=== PATIENT | female | born 1955 | race Caucasian/White ===

== ENCOUNTER 2017-10-30 09:31 | Emergency (ER) | payer OTHER ==
[~2017-10-30] VITALS: Ht 157.5 cm; Wt 60.0 kg
[~2017-10-30 09:31] MED LIST: ADVAIR DISK2 IN; ALBUTEROL S2.5 MG/.5 IN; ALENDRONATE70 MG PO; ASPIRIN EC325 MG PO; ATORVASTATIN CA10 MG PO; AUGMENTIN875TAB PO; BACTRIM DS1 TAB PO; BACTROBAN2 % EX; CYANOCOBALAM1000 MC1 IM; DIPHEN/ATROP2.5 M1 PO; DOXYCYCL HYC100 M4 PO; DUREZOL0.05 % OP; GABAPENTIN100 MG PO; HYDROCHLOROT12.5 M1 PO; LORTAB 1010 MG PO; LORTAB 5 OR; LORTAB5 OR; LOTRIMIN AF FOR H1 % TOP; MEDDOSEPAK PO; NAPROSYN250 MG PO; NEURONTIN300 MG PO; NO HOME MEDS PER PT; PAROXETINE20 MG PO; PERCOCET 5/325M1 TAB PO; PRILOSEC20 MG PO; PRIMATENE0.22 MG/A IN; PROMETHAZINE HC25 MG PO; PROVENTIL INH17 GM IN; PROVENTIL0.083 % IN; QVAR REDIH80 MCG/ACT IN; SPIRIVA IN; STERAPRED DS10 MG PO; TORADOL30 MG/VIAL IJ; ULTRAM50 MG OR; ZPAK PO; [UNRECOGNIZED DRUG - OTHER] OS
[2017-10-30] MEDS ORDERED: PROAIR HFA108 MCG/AC IN (11:18)
[2017-10-30] MEDS ORDERED: K-DUR/KLOR-CON20 MEQ PO (11:20)
[2017-10-30] MEDS ORDERED: LORTAB 1010 MG PO (17:12)
[2017-10-30 18:00] VITALS: BP 129/77
== END 2017-10-30 18:00 | disposition home or self-care (01) | DRG 563 ==
LOC: ED 09:31
PROC: 2W3QX1Z Immobilization of Right Lower Leg using Splint (ICD-10-PCS; principal; 2017-10-30)
DX: S82.141A Displaced bicondylar fracture of right tibia, initial encounter for closed fracture (principal); M25.561 Pain in right knee; W17.2XXA Fall into hole, initial encounter; Y93.01 Activity, walking, marching and hiking; Y92.007 Garden or yard of unspecified non-institutional (private) residence as the place of occurrence of the external cause; M25.562 Pain in left knee

== ENCOUNTER 2018-01-02 12:22 | Emergency (ER) | payer OTHER ==
[~2018-01-02] VITALS: Ht 157.5 cm; Wt 60.9 kg
[~2018-01-02 12:22] MED LIST changes: +K-DUR/KLOR-CON20 MEQ PO; +PROAIR HFA108 MCG/AC IN
[2018-01-02 13:11] LABS: HEMATOCRIT 45.1 % (37.0-47.0); IMMATURE GRANULOCYTES 0.3 % (0.0-1.0); MEAN CORPUSCULAR HGB 30.9 pG CALC (26.0-32.0); MEAN CORPUSCULAR HGB CONC 33.3 g/L CALC (32.0-36.0); NEUT# 11.58 thou/uL (2.00-7.15); RED BLOOD COUNT 4.85 mill/uL (4.20-5.60); RED CELL DISTRI WIDTH 12.7 % (11.5-15.5)
[2018-01-02 13:20] LABS: ALKALINE PHOSPHATASE 129 u/l (38-126); ANION GAP 20 (6-22 (CALC)); BILIRUBIN, TOTAL 0.8 mg/dL (0.0-1.4); BUN 16 mg/dL (8-23); BUN/CREATININE RATIO 29 (12-20 (CALC)); CARBON DIOXIDE 21 mmol/l (22-30); CHLORIDE 107 mmol/l (95-108); CREATININE 0.6 mg/dL (0.5-1.0); GFR > 60 ML/MIN (>=60 (CALC)); GFR FOR AFR.AMER. > 60 ML/MIN (>=60 (CALC)); POTASSIUM 3.8 mmol/l (3.5-5.1); SGOT/AST 41 u/l (9-36); SGPT/ALT 45 u/l (11-66); SODIUM 144 mmol/l (137-146); TOTAL PROTEIN 7.2 g/dL (6.3-8.2)
[2018-01-02 13:24] LABS: ALBUMIN 4.5 g/dL (3.2-5.0)
[2018-01-02] MEDS ORDERED: PHENERGAN25 MG/TAB PO (14:22)
[2018-01-02] MEDS ORDERED: LOMOTIL2.5 MG PO (14:22)
[2018-01-02 15:09] VITALS: BP 114/68
== END 2018-01-02 15:41 | disposition home or self-care (01) | DRG 392 ==
LOC: ED 12:22
PROVIDERS: Family Medicine
DX: A08.39 Other viral enteritis (principal); R10.11 Right upper quadrant pain; R10.12 Left upper quadrant pain; R42 Dizziness and giddiness; R11.10 Vomiting, unspecified

== ENCOUNTER 2018-08-09 00:11 | Emergency (ER) | payer OTHER ==
[~2018-08-09] VITALS: Ht 157.5 cm; Wt 60.2 kg
[~2018-08-09 00:11] MED LIST changes: +LOMOTIL2.5 MG PO; +PHENERGAN25 MG/TAB PO
[2018-08-09 01:11] VITALS: BP 132/61
== END 2018-08-09 01:15 | disposition home or self-care (01) ==
LOC: ED 00:11
DX: J02.9 Acute pharyngitis, unspecified (principal); I10 Essential (primary) hypertension; M19.90 Unspecified osteoarthritis, unspecified site; J45.909 Unspecified asthma, uncomplicated; Z98.84 Bariatric surgery status

== ENCOUNTER 2019-04-25 12:48 | Emergency (ER) | payer OTHER ==
[~2019-04-25] VITALS: Ht 157.5 cm; Wt 59.0 kg
[2019-04-25] MEDS ORDERED: BACTRIM DS1 TAB PO (14:22)
[2019-04-25] MEDS ORDERED: KEFLEX500 M1 PO (14:22)
[2019-04-25 14:40] VITALS: BP 129/79
== END 2019-04-25 14:39 | disposition home or self-care (01) ==
LOC: ED 12:48
DX: L02.415 Cutaneous abscess of right lower limb (principal); I10 Essential (primary) hypertension

== ENCOUNTER 2019-04-27 12:27 | Emergency (ER) | payer OTHER ==
[~2019-04-27] VITALS: Ht 157.5 cm; Wt 61.4 kg
[~2019-04-27 12:27] MED LIST changes: +KEFLEX500 M1 PO
[2019-04-27 13:26] VITALS: BP 142/65
== END 2019-04-27 13:31 | disposition home or self-care (01) ==
LOC: ED 12:27
DX: Z48.01 Encounter for change or removal of surgical wound dressing (principal); I10 Essential (primary) hypertension

== ENCOUNTER 2019-06-09 17:21 | Observation (INO) | payer OTHER ==
[~2019-06-09] VITALS: Ht 157.5 cm; Wt 60.0 kg
[~2019-06-09 17:21] MED LIST changes: -PROAIR HFA108 MCG/AC IN
--- NOTE | 2019-06-09 17:22 | NUR ---
PT DIRECTLY TO ROOM 14 VIA WHEELCHAIR.
[2019-06-09 17:44] LABS: HEMATOCRIT 41.2 % (37.0-47.0); HEMOGLOBIN 13.4 g/dl (12.0-16.0); IMMATURE GRANULOCYTES 0.4 % (0.0-5.0); MEAN CELL VOLUME 95.2 fL CALC (80.0-100.0); MEAN CORPUSCULAR HGB 30.9 pG CALC (26.0-32.0); MEAN CORPUSCULAR HGB CONC 32.5 g/L CALC (32.0-36.0); NEUT# 7.41 thou/uL (2.00-7.15); RED BLOOD COUNT 4.33 mill/uL (4.20-5.60); RED CELL DISTRI WIDTH 12.2 % (11.5-15.5)
[2019-06-09] MEDS ORDERED: PAROXETINE20 MG PO (17:46)
[2019-06-09] MEDS ORDERED: FLECAINIDE50 MG PO (17:47)
[2019-06-09] MEDS ORDERED: PRAVASTATIN SOD20 MG PO (17:48)
[2019-06-09] MEDS ORDERED: XARELTO20 MG PO (17:48)
[2019-06-09] MEDS ORDERED: LISINOPRIL5 MG PO (17:48)
[2019-06-09] MEDS ORDERED: PROAIR HFA108 MCG/AC IN (17:49)
[2019-06-09] MEDS ORDERED: FLOVENT HF220 MCG/AC IN (17:50)
[2019-06-09 18:00] LABS: ALKALINE PHOSPHATASE 109 u/l (38-126); BILIRUBIN, TOTAL 0.3 mg/dL (0.0-1.4); BUN 24 mg/dL (8-23); BUN/CREATININE RATIO 28 (12-20 (CALC)); CARBON DIOXIDE 30 mmol/l (22-30); CHLORIDE 99 mmol/l (95-108); CREATININE 0.9 mg/dL (0.5-1.0); GFR > 60 ML/MIN (>=60 (CALC)); GFR FOR AFR.AMER. > 60 ML/MIN (>=60 (CALC)); SGOT/AST 49 u/l (9-36); SODIUM 139 mmol/l (137-146)
--- NOTE | 2019-06-09 18:02 | NUR ---
RESTING ON STRECTHER, STAETS NO PAIN AT THIS TIME BUT THAT IT COMES AND GOES. CALL HARRY WITHIN REACH
[2019-06-09 18:11] LABS: MYOGLOBIN 30 ng/mL (0 - 62)
[2019-06-09 18:12] LABS: ALBUMIN 4.9 g/dL (3.2-5.0); ANION GAP 15 (6-22 (CALC)); POTASSIUM 4.5 mmol/l (3.5-5.1)
[2019-06-09 19:13] LABS: URINE BILIRUBIN - DIPSTICK NEGATIVE (NEGATIVE); URINE BLOOD DIPSTICK NEGATIVE (NEGATIVE); URINE COLOR YELLOW; URINE GLUCOSE - DIPSTICK NEGATIVE (NEGATIVE); URINE KETONE NEGATIVE (NEGATIVE); URINE LEUK ESTERASE NEGATIVE (NEGATIVE); URINE NITRITE - DIPSTICK NEGATIVE (Negative); URINE PROTEIN - DIPSTICK NEGATIVE (NEG-TRACE); URINE SPECIFIC GRAVITY <=1.005; URINE UROBILINOGEN - DIPSTICK 0.2 E.U./dL (0.2)
--- NOTE | 2019-06-09 19:58 | NUR ---
ATTEMPTED TO CALL REPORT. RASHEEDA WILL CALLBACK.
--- NOTE | 2019-06-09 20:40 | NUR ---
PT RESTING. FAMILY AT BEDSIDE. AWAITING ADMIT ORDERS. VSS. PT C/O BEING HOT. ICE WATER GIVEN.
--- NOTE | 2019-06-09 20:58 | NUR ---
REPORT TO EMIR VANESSA. DR DAMON DID NOT WISH TO ORDER ASA PT IS ON XALERTO.
--- NOTE | 2019-06-09 21:09 | NUR ---
TO FLOOR WITH PORTABLE MONITOR/VIA STRETCHER/WITH NURSE. PT AMBULATORY TO SCALE AND THEN TO BED. PT TOOK O2 OFF AND IS NOW SATING AT 97/RA.
--- NOTE | 2019-06-09 21:15 | NUR ---
PT. ARRIVES VIA STRETCHER FROM ER. AMBULATORY WITH STEADY GAIT FROM STRETCHER TO STANDING SCALE AND THEN TO ICU BED #2. PT. AMBULATORY WITH STEADY GAIT WITHOUT ASSIST. RESPS EVEN AND UNLABORED. LUNGS CTA. EXPLAINED CALL LIGHT AND BED CONTROLS TO PATIENT. DENIES CHEST PAIN AT THIS TIME. BOWEL SOUNDS ACTIVE. PT. STATES WITH CHRONIC DIARRHEA AND HAD MULTIPLE EPISODES TODAY. NO EDEMA NOTED. DISTIL PULSES INTACT. VSS. CALL LIGHT REMAINS WITHIN REACH.
[2019-06-09 21:30] VITALS: BP 135/83
--- NOTE | 2019-06-09 22:22 | NUR ---
PT. PROVIDED WITH SNACK OF APPLESAUCE AND GRANOLA BAR AT THIS TIME. CALL LIGHT REMAINS WITHIN REACH. PT. DENIES OTHER COMPLAINTS OR NEEDS.
--- NOTE | 2019-06-09 22:50 | NUR ---
MEDICATED PER HER REQUEST WITH SLEEPING PILL. DENIES OTHER COMPLAINTS OR NEEDS.
[2019-06-10] VITALS: BP 114/63
--- NOTE | 2019-06-10 00:26 | NUR ---
LAB AT BEDSIDE TO DRAW PT. PT. REMAINS EASILY AROUSABLE TO LIGHT VERBAL STIMULI. CALL LIGHT REMAINS WITHIN REACH. VOICES NO COMPLAINTS OR NEEDS AT THIS TIME. WILL CONTINUE TO MONITOR.
--- NOTE | 2019-06-10 02:17 | NUR ---
PT. PTOVIDED WITH TYLENOL FOR HEADACHE AT THIS TIME. ALSO GIVEN APPLE SAUCE PER HER REQUEST. ASSISTED TO BSC. APPROX 650 CC OUT AT THIS TIME. CALL LIGHT REMAINS WITHIN REACH. NO DISTRESS NOTED. GOWN CHANGED PT. HAS HAS MODERATE AMOUNT OF SWEATING WHILE SLEEPING.
[2019-06-10 04:00] VITALS: BP 105/63
--- NOTE | 2019-06-10 05:38 | NUR ---
PT. RESTING IN BED WITH EYES CLOSED IN NO DISTRESS. DENIES CHEST PAIN OR ANGINAL EQUIVALENT. CALL LIGHT REMAINS WITHIN REACH. WILL CONTINUE TO CLOSELY MONITOR.
--- NOTE | 2019-06-10 07:45 | NUR ---
DR CORDON @BEDSIDE.
[2019-06-10 08:00] VITALS: BP 123/66
--- NOTE | 2019-06-10 08:00 | NUR ---
PT C/O INTERMITTENT PINCHING CHEST PAIN x2 DAYS. PM/DEFIB LOCATED IN LEFT ARMPIT & MOVES WITH ARM MOVEMENT. PT DENIES PATTERN WITH CP. BREATHING EVEN/UNLABORED. PT STATES SHE FEELS A FLUTTER WITH PAIN. ABD SOFT/NONTENDER. DENIES N/V. STATES SHE ALWAYS HAS DIARRHEA D/T HX OF GASTRIC BIPASS. NEUROS WNL.
[2019-06-10 12:00] VITALS: BP 133/64
--- NOTE | 2019-06-10 12:00 | NUR ---
PT SITTING UP IN BED, EATING LUNCH. DENIES PAIN AT THIS TIME. WILL CONTINUE TO MONITOR.
[2019-06-10 16:00] VITALS: BP 111/72
--- NOTE | 2019-06-10 16:44 | NUR ---
POC PENDING CONSULT WITH CARDIOLOGY. WILL CONTINUE TO MONITOR. PT DENIES PAIN TODAY.
--- NOTE | 2019-06-10 16:47 | NUR ---
PT ABLE TO WALK WITH STEADY GAIT TO BATHROOM. POC PENDING CONSULT WITH CARDIOLOGY.
--- NOTE | 2019-06-10 17:02 | NUR ---
PT MEDICATED FOR HEADACHE.
--- NOTE | 2019-06-10 19:25 | NUR ---
PATIENT'S BROTHER AT BEDSIDE TO VISIT PATIENT.
--- NOTE | 2019-06-10 19:30 | NUR ---
PATIENT WITH HOB NEAR 90 DEGREES. ON RA, SATS 98 %. NO SOB NOTED. DENIES NAUSEA BUT DID EXPLAIN THAT SHE HAS HAD GASTRIC BYPASS AND HAS TROUBLE WITH FOOD AT TIMES. HEAD TO TOE NURSING ASSESSMENT PERFORMED. LAC 20G IV INTACT, FLSUHES AND HAS BLOOD RETURN, PATIENT DID COMPLAIN OF IV HURTING WHEN FLUSHING, NO REDNESS OR TENDERNESS NOTED AT IV SITE. NO COMPLAINTS OF CHEST PAIN. POC FOR TONIGHT EXPLAINED. AFEBRILE. CALL LIGHT WITHIN REACH. SELF REPOSITIONS.
[2019-06-10 20:00] VITALS: BP 107/74
--- NOTE | 2019-06-10 21:00 | NUR ---
PATIENT UP TO RESTROOM WITHOUT DIFFICULTY, REQUESTED TO HAVE GOWN CHANGED, AND SHEETS TO BE CHANGED BECAUSE SHE HAS SWEATED. AC AIR TURNED DOWN PER REQUEST.
--- NOTE | 2019-06-10 22:00 | NUR ---
PATIENT REQUESTED APPLE SAUCE AND A COLA. SHE REPORTED SHE DID NOT EAT HER DINNER AND IS HUNGRY.
--- NOTE | 2019-06-10 23:25 | NUR ---
PATIENT REQUESTED SLEEPING MEDICATION. PATIENT ABLE TO TOLERATE HER SNACK.
[2019-06-11 00:10] VITALS: BP 121/74
--- NOTE | 2019-06-11 02:06 | NUR ---
PATIENT LAYING IN BED WITH EYES CLOSED. NO ACUTE DISTRESS NOTED. CALL LIGHT WITHIN REACH.
--- NOTE | 2019-06-11 04:05 | NUR ---
patient lays with hob 30 degrees. rests with eyes closed. arouses easilywith verbal stimuli. on room air, sats 95%. no complaints of pain. no acute distress shown. afebrile. afib, paced on telemetry. call light within reach. will continue to monitor.
[2019-06-11 04:10] VITALS: BP 109/78
--- NOTE | 2019-06-11 06:32 | NUR ---
PATIENT LAYS WITH HOB 30 DEGREES. NEW ICED WATER PROVIDED. NO ACUTE DISTRESS SHOWN. CALL LIGHT WITHIN REACH.
--- NOTE | 2019-06-11 07:16 | NUR ---
PT LAYING ON BACK, IN FOWLERS POSITION. DENIES CP LAST NIGHT OR THIS AM. RECVD REPORT FROM EMIR MICHAUD @START OF SHIFT.
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
[2019-06-11 08:00] VITALS: BP 120/96
--- NOTE | 2019-06-11 08:15 | NUR ---
DR CORDON @BEDSIDE FOR ASSESSMENT & POC/TEST RESULTS
--- NOTE | 2019-06-11 11:04 | NUR ---
CARDIOLOGY @BEDSIDE FOR CONSULT.
--- NOTE | 2019-06-11 11:47 | NUR ---
PT SITTING UP IN BED, EATING LUNCH. DENIES PAIN. DENIES N/V.
[2019-06-11 12:00] VITALS: BP 101/65
--- NOTE | 2019-06-11 12:27 | NUR ---
DR CORDON & RN @BEDSIDE FOR PACEMAKER INTERROGATION.
--- NOTE | 2019-06-11 13:20 | NUR ---
PT/DAUGHTER EDUCATED ON DC INSTRUCTIONS; INCLUDING STOP MEDICATIONS, AND F/UP CARE. PTS HOME MED RETURNED. IV DC'D, TIP INTACT, DRESSING APPLIED.
--- NOTE | 2019-06-11 13:25 | NUR ---
PT DRESSED SELF, OUT THE DOOR WITH DUAGHTER & AUX BY WC IN STABLE CONDITION.
== END 2019-06-11 13:26 | disposition home or self-care (01) ==
LOC: ED 17:21 → ED-I 19:39 → ED 19:43 → ICU 19:44
PROVIDERS: Emergency Medicine; ADMIT Internal Medicine; ATTEND Internal Medicine
DX: R07.89 Other chest pain (principal); I48.91 Unspecified atrial fibrillation; I48.92 Unspecified atrial flutter; T82.121A Displacement of cardiac pulse generator (battery), initial encounter; I10 Essential (primary) hypertension; J44.9 Chronic obstructive pulmonary disease, unspecified; E78.5 Hyperlipidemia, unspecified; Y83.1 Surgical operation with implant of artificial internal device as the cause of abnormal reaction of the patient, or of later complication, without mention of misadventure at the time of the procedure; Z95.0 Presence of cardiac pacemaker; Z79.01 Long term (current) use of anticoagulants; Z87.891 Personal history of nicotine dependence

== ENCOUNTER 2019-06-11 14:27 | Emergency (ER) | payer OTHER ==
[~2019-06-11] VITALS: Ht 157.5 cm; Wt 77.8 kg
[~2019-06-11 14:27] MED LIST changes: +FLECAINIDE50 MG PO; +FLOVENT HF220 MCG/AC IN; +LISINOPRIL5 MG PO; +PRAVASTATIN SOD20 MG PO; +PROAIR HFA108 MCG/AC IN; +XARELTO20 MG PO
[2019-06-11 15:23] LABS: HEMATOCRIT 43.2 % (37.0-47.0); IMMATURE GRANULOCYTES 0.4 % (0.0-5.0); MEAN CELL VOLUME 96.2 fL CALC (80.0-100.0); MEAN CORPUSCULAR HGB 31.2 pG CALC (26.0-32.0); MEAN CORPUSCULAR HGB CONC 32.4 g/L CALC (32.0-36.0); NEUT# 8.46 thou/uL (2.00-7.15); RED BLOOD COUNT 4.49 mill/uL (4.20-5.60); RED CELL DISTRI WIDTH 12.2 % (11.5-15.5)
[2019-06-11 15:41] LABS: ANION GAP 14 (6-22 (CALC)); BUN 26 mg/dL (8-23); BUN/CREATININE RATIO 32 (12-20 (CALC)); CARBON DIOXIDE 25 mmol/l (22-30); CHLORIDE 103 mmol/l (95-108); CREATININE 0.8 mg/dL (0.5-1.0); GFR > 60 ML/MIN (>=60 (CALC)); GFR FOR AFR.AMER. > 60 ML/MIN (>=60 (CALC)); SODIUM 137 mmol/l (137-146)
[2019-06-11 17:01] VITALS: BP 106/57
== END 2019-06-11 17:01 | disposition short-term general hospital (02) ==
LOC: ED 14:27
PROVIDERS: Family Medicine
DX: I48.2 Chronic atrial fibrillation (principal); Z79.01 Long term (current) use of anticoagulants; R55 Syncope and collapse; Y92.512 Supermarket, store or market as the place of occurrence of the external cause; R94.31 Abnormal electrocardiogram [ECG] [EKG]; R07.9 Chest pain, unspecified; I10 Essential (primary) hypertension; Z95.0 Presence of cardiac pacemaker

== ENCOUNTER 2019-07-24 07:53 | Day surgery (SDC) | payer OTHER ==
[~2019-07-24 07:53] MED LIST changes: +DILTIAZEM90 M1 PO; +POTASSIUM CHLO10 MEQ PO; +PROAIR HFA108 MCG/AC
[2019-07-24 09:57] VITALS: BP 126/77
== END 2019-07-24 10:11 | disposition home or self-care (01) ==
LOC: ENDO 07:53
PROVIDERS: ATTEND Surgery
DX: Z12.11 Encounter for screening for malignant neoplasm of colon (principal); K57.30 Diverticulosis of large intestine without perforation or abscess without bleeding; I10 Essential (primary) hypertension; I48.91 Unspecified atrial fibrillation; Z98.84 Bariatric surgery status; Z95.0 Presence of cardiac pacemaker

== ENCOUNTER 2020-09-06 12:26 | Observation (INO) | payer MEDICARE, MEDICAID ==
[~2020-09-06] VITALS: Ht 154.9 cm; Wt 65.0 kg
--- NOTE | 2020-09-06 14:05 | NUR ---
PT ARRIVED BACK FROM XRAY CURRENTLY WITHOUT DISTRESS
[2020-09-06 14:08] LABS: HEMATOCRIT 39.6 % (37.0-47.0); HEMOGLOBIN 12.8 g/dl (12.0-16.0); IMMATURE GRANULOCYTES 0.5 % (0.0-5.0); MEAN CELL VOLUME 95.7 fL CALC (80.0-100.0); MEAN CORPUSCULAR HGB 30.9 pG CALC (26.0-32.0); MEAN CORPUSCULAR HGB CONC 32.3 g/dL CAL (32.0-36.0); NEUT# 6.11 thou/uL (2.00-7.15); RED BLOOD COUNT 4.14 mill/uL (4.20-5.60); RED CELL DISTRI WIDTH 13.2 % (11.5-15.5)
[2020-09-06 14:26] LABS: ALBUMIN 4.5 g/dL (3.2-5.0); ALKALINE PHOSPHATASE 103 u/l (38-126); ANION GAP 13 (6-22 (CALC)); BUN 13 mg/dL (8-23); BUN/CREATININE RATIO 18 (12-20 (CALC)); CARBON DIOXIDE 22 mmol/l (22-30); CHLORIDE 110 mmol/l (95-108); CREATININE 0.7 mg/dL (0.5-1.0); GFR > 60 ML/MIN (>=60 (CALC)); GFR FOR AFR.AMER. > 60 ML/MIN (>=60 (CALC)); POTASSIUM 3.7 mmol/l (3.5-5.1); SGOT/AST 39 u/l (9-36); SODIUM 141 mmol/l (137-146); TOTAL PROTEIN 7.7 g/dL (6.3-8.2)
[2020-09-06 14:28] LABS: ACT PARTIAL THROMBO TIME 28.7 SECONDS (20.0-32.5); PROTHROMBIN TIME 12.7 SECONDS (9.0-12.5)
[2020-09-06 14:30] LABS: BILIRUBIN, TOTAL 0.5 mg/dL (0.0-1.4)
[2020-09-06 14:39] LABS: INTERNATIONAL NORMALIZED RATIO 1.3 RATIO (0.7-1.3)
--- NOTE | 2020-09-06 19:00 | NUR ---
REPORT RECEIVED FROM EMIR NORIEGA. PT ADMITTED TO ER14. PT IN HOSPITAL BED WITH PUREWICK IN PLACE DRAINING TO SUCTION CONTAINER.. URINE KEATON.
[2020-09-06 21:03] VITALS: BP 109/71
--- NOTE | 2020-09-06 21:50 | NUR ---
MEDICATED WITH MORPHINE 2 MG IV FOR PAIN 10/10 TO RIGHT WRIST AND KNEE.
[2020-09-06 23:03] VITALS: BP 104/58
[2020-09-07 01:03] VITALS: BP 108/67
[2020-09-07 03:50] VITALS: BP 117/74
--- NOTE | 2020-09-07 04:00 | NUR ---
PT CALLED STATING SHE NEEDS TO HAVE BM. PT UNABLE TO WALK DUE TO KNEE HURTING. BSC PUT IN ROOM AND ASSISTED PT TO COMMODE.
[2020-09-07 04:52] VITALS: BP 113/74
--- NOTE | 2020-09-07 04:55 | NUR ---
PT WAS ABLE TO GET OFF BSC AND GET BACK INTO BED HERSELF. DC'D NAYANACK WHEN I GOT PT TO BS. PT STATED SHE DIDN'T GO SHE JUST URINATED. MEDICATED PT WITH MORPHINE FOR PAIN 07/24
--- NOTE | 2020-09-07 05:30 | NUR ---
PT RESTING QUIETLY ON STRETCHER. WAKES EASILY. ASKED ABOUT PAIN AND SHE STATED BETTER ABOUT 5/10
--- NOTE | 2020-09-07 07:00 | NUR ---
RECEIVED REPORT FROM EMIR KHOURY.
--- NOTE | 2020-09-07 07:15 | NUR ---
REPORT GIVEN TO JANUARY, RN
--- NOTE | 2020-09-07 09:06 | NUR ---
PT WAS ABLE TO GET UP TO BSC WITH ASSISTANCE. VITALS STABLE. ATTACHED TO MONITOR. CALL LIGHT WITHIN REACH, BED IN LOW POSITION. NO COMPLAINTS AT THIS TIME.
--- NOTE | 2020-09-07 11:15 | NUR ---
PT RESTING, DENIES ANY PAIN AT THIS TIME. NO CHANGES FROM PREVIOUS NOTE.
--- NOTE | 2020-09-07 11:32 | NUR ---
PT REVIEWED PATIENT'S CHART AND PATIENT WILL BENEFIT FROM PHYSICAL THERAPY TREATMENT. ORDER FOR PT EVAL AND TREAT.
--- NOTE | 2020-09-07 13:15 | NUR ---
PT RESTING. PAIN IMPROVED. CALL LIGHT AND PERSONAL ITEMS WITHIN REACH. BED IN LOW POSITION. VITALS STABLE ON MONITOR.
[2020-09-07] MEDS ORDERED: TRAMADOL HCL50 MG PO (14:52)
[2020-09-07 15:00] VITALS: BP 130/59
== END 2020-09-07 16:52 | disposition home or self-care (01) ==
LOC: ED 12:26 → ED-I 15:00 → ED 15:14 → ED-I 15:14 → ED 15:15 → UNDODEPER 09-07 15:15 → ED-I 09-07 16:52
PROVIDERS: ADMIT Internal Medicine; ATTEND Internal Medicine
DX: G89.29 Other chronic pain (principal); M16.12 Unilateral primary osteoarthritis, left hip; M79.641 Pain in right hand; M25.531 Pain in right wrist; R55 Syncope and collapse; S09.90XA Unspecified injury of head, initial encounter; I10 Essential (primary) hypertension; F41.9 Anxiety disorder, unspecified; I48.91 Unspecified atrial fibrillation; E78.5 Hyperlipidemia, unspecified; J44.9 Chronic obstructive pulmonary disease, unspecified; G62.9 Polyneuropathy, unspecified; K21.9 Gastro-esophageal reflux disease without esophagitis; W11.XXXA Fall on and from ladder, initial encounter; Y92.009 Unspecified place in unspecified non-institutional (private) residence as the place of occurrence of the external cause; Y93.89 Activity, other specified; Z79.01 Long term (current) use of anticoagulants; Z98.84 Bariatric surgery status; Z95.0 Presence of cardiac pacemaker; Z86.73 Personal history of transient ischemic attack (TIA), and cerebral infarction without residual deficits; Z87.891 Personal history of nicotine dependence; Z20.828 Contact with and (suspected) exposure to other viral communicable diseases

== ENCOUNTER 2021-01-22 13:38 | Observation (INO) | payer MEDICARE, MEDICAID ==
[~2021-01-22 13:38] MED LIST changes: +TRAMADOL HCL50 MG PO
[2021-01-22 14:40] LABS: HEMATOCRIT 35.8 % (37.0-47.0); HEMOGLOBIN 11.5 g/dl (12.0-16.0); IMMATURE GRANULOCYTES 0.4 % (0.0-5.0); MEAN CELL VOLUME 100.3 fL CALC (80.0-100.0); MEAN CORPUSCULAR HGB 32.2 pG CALC (26.0-32.0); MEAN CORPUSCULAR HGB CONC 32.1 g/dL CAL (32.0-36.0); NEUT# 15.9 thou/uL (2.00-7.15); RED BLOOD COUNT 3.57 mill/uL (4.20-5.60); RED CELL DISTRI WIDTH 12.8 % (11.5-15.5)
[2021-01-22 14:55] LABS: ALKALINE PHOSPHATASE 92 u/l (38-126); ANION GAP 9 (6-22 (CALC)); BILIRUBIN, TOTAL 0.7 mg/dL (0.0-1.4); BUN 12 mg/dL (8-23); BUN/CREATININE RATIO 19 (12-20 (CALC)); CARBON DIOXIDE 24 mmol/l (22-30); CHLORIDE 104 mmol/l (95-108); CREATININE 0.6 mg/dL (0.5-1.0); GFR > 60 ML/MIN (>=60 (CALC)); GFR FOR AFR.AMER. > 60 ML/MIN (>=60 (CALC)); SGOT/AST 27 u/l (9-36); SODIUM 135 mmol/l (137-146); TOTAL PROTEIN 6.8 g/dL (6.3-8.2)
[2021-01-22 15:10] LABS: INTERNATIONAL NORMALIZED RATIO 1.2 RATIO (0.7-1.3)
[2021-01-22 16:54] LABS: URINE BILIRUBIN - DIPSTICK NEGATIVE (NEGATIVE); URINE BLOOD DIPSTICK NEGATIVE (NEGATIVE); URINE COLOR YELLOW; URINE GLUCOSE - DIPSTICK NEGATIVE (NEGATIVE); URINE KETONE NEGATIVE (NEGATIVE); URINE LEUK ESTERASE NEGATIVE (NEGATIVE); URINE PROTEIN - DIPSTICK NEGATIVE (NEG-TRACE); URINE UROBILINOGEN - DIPSTICK 0.2 E.U./dL (0.2)
[2021-01-22 16:55] LABS: URINE NITRITE - DIPSTICK NEGATIVE (Negative)
[2021-01-22 19:41] VITALS: BP 122/72
[2021-01-23 04:15] VITALS: BP 114/70
[2021-01-23 05:41] LABS: HEMATOCRIT 34.3 % (37.0-47.0); HEMOGLOBIN 11.2 g/dl (12.0-16.0); MEAN CELL VOLUME 101.5 fL CALC (80.0-100.0); MEAN CORPUSCULAR HGB 33.1 pG CALC (26.0-32.0); MEAN CORPUSCULAR HGB CONC 32.7 g/dL CAL (32.0-36.0); RED BLOOD COUNT 3.38 mill/uL (4.20-5.60); RED CELL DISTRI WIDTH 13.2 % (11.5-15.5)
[2021-01-23 06:02] LABS: ALBUMIN 3.6 g/dL (3.2-5.0); ALKALINE PHOSPHATASE 69 u/l (38-126); ANION GAP 13 (6-22 (CALC)); BILIRUBIN, TOTAL 0.5 mg/dL (0.0-1.4); BUN 10 mg/dL (8-23); BUN/CREATININE RATIO 21 (12-20 (CALC)); CARBON DIOXIDE 21 mmol/l (22-30); CHLORIDE 109 mmol/l (95-108); CREATININE 0.5 mg/dL (0.5-1.0); GFR > 60 ML/MIN (>=60 (CALC)); GFR FOR AFR.AMER. > 60 ML/MIN (>=60 (CALC)); MAGNESIUM 2.2 mg/dL (1.6-2.3); POTASSIUM 3.5 mmol/l (3.5-5.1); SGOT/AST 19 u/l (9-36); SODIUM 139 mmol/l (137-146); TOTAL PROTEIN 6.2 g/dL (6.3-8.2)
[2021-01-23 07:50] VITALS: BP 127/62
[2021-01-23] MEDS ORDERED: DILT-XR180 MG PO (08:12)
[2021-01-23] MEDS ORDERED: GABAPENTIN300 M2 PO (08:12)
[2021-01-23] MEDS ORDERED: VOLTAREN1%GEL TOP (08:13)
[2021-01-23] MEDS ORDERED: HYDROCHLOROTH12.5 M1 PO (08:13)
[2021-01-23 10:34] VITALS: BP 148/98
[2021-01-23 14:49] VITALS: BP 141/86
[2021-01-23 19:50] VITALS: BP 142/86
[2021-01-24] VITALS: BP 150/87
[2021-01-24 04:00] VITALS: BP 157/101
[2021-01-24 05:01] LABS: HEMATOCRIT 34.4 % (37.0-47.0); HEMOGLOBIN 10.8 g/dl (12.0-16.0); MEAN CELL VOLUME 102.4 fL CALC (80.0-100.0); MEAN CORPUSCULAR HGB 32.1 pG CALC (26.0-32.0); MEAN CORPUSCULAR HGB CONC 31.4 g/dL CAL (32.0-36.0); RED BLOOD COUNT 3.36 mill/uL (4.20-5.60); RED CELL DISTRI WIDTH 13.3 % (11.5-15.5)
[2021-01-24 05:21] LABS: ALBUMIN 3.2 g/dL (3.2-5.0); ALKALINE PHOSPHATASE 69 u/l (38-126); ANION GAP 10 (6-22 (CALC)); BILIRUBIN, TOTAL 0.6 mg/dL (0.0-1.4); BUN 7 mg/dL (8-23); BUN/CREATININE RATIO 15 (12-20 (CALC)); CARBON DIOXIDE 23 mmol/l (22-30); CHLORIDE 110 mmol/l (95-108); CREATININE 0.5 mg/dL (0.5-1.0); GFR > 60 ML/MIN (>=60 (CALC)); GFR FOR AFR.AMER. > 60 ML/MIN (>=60 (CALC)); POTASSIUM 3.4 mmol/l (3.5-5.1); SGOT/AST 20 u/l (9-36); SODIUM 139 mmol/l (137-146); TOTAL PROTEIN 5.9 g/dL (6.3-8.2)
[2021-01-24 08:30] VITALS: BP 155/95
[2021-01-24 10:30] VITALS: BP 151/94
[2021-01-24 15:30] VITALS: BP 148/73
[2021-01-24 18:54] VITALS: BP 138/74
[2021-01-25] VITALS: BP 145/85
[2021-01-25 04:00] VITALS: BP 152/89
[2021-01-25 05:27] LABS: HEMATOCRIT 35.9 % (37.0-47.0); HEMOGLOBIN 11.3 g/dl (12.0-16.0); MEAN CELL VOLUME 100.8 fL CALC (80.0-100.0); MEAN CORPUSCULAR HGB 31.7 pG CALC (26.0-32.0); MEAN CORPUSCULAR HGB CONC 31.5 g/dL CAL (32.0-36.0); RED BLOOD COUNT 3.56 mill/uL (4.20-5.60); RED CELL DISTRI WIDTH 12.6 % (11.5-15.5)
[2021-01-25 05:55] LABS: ANION GAP 11 (6-22 (CALC)); BUN 4 mg/dL (8-23); BUN/CREATININE RATIO 8 (12-20 (CALC)); CARBON DIOXIDE 25 mmol/l (22-30); CHLORIDE 105 mmol/l (95-108); CREATININE 0.5 mg/dL (0.5-1.0); GFR > 60 ML/MIN (>=60 (CALC)); GFR FOR AFR.AMER. > 60 ML/MIN (>=60 (CALC)); MAGNESIUM 1.7 mg/dL (1.6-2.3); POTASSIUM 3.3 mmol/l (3.5-5.1); SODIUM 138 mmol/l (137-146)
[2021-01-25 08:00] VITALS: BP 149/89
[2021-01-25] MEDS ORDERED: LEVAQUIN750 M1 PO (10:23)
[2021-01-25 11:10] VITALS: BP 155/84
== END 2021-01-25 12:04 | disposition home or self-care (01) ==
LOC: ED 13:38 → ED-I 14:40 → ED 18:42 → MS2 18:43
PROVIDERS: Family Medicine; Nurse Practitioner; Physician Assistant Surgical; ADMIT Internal Medicine; ATTEND Internal Medicine
DX: J18.9 Pneumonia, unspecified organism (principal); J44.0 Chronic obstructive pulmonary disease with (acute) lower respiratory infection; I10 Essential (primary) hypertension; I48.91 Unspecified atrial fibrillation; E87.6 Hypokalemia; E78.5 Hyperlipidemia, unspecified; I48.92 Unspecified atrial flutter; S09.90XA Unspecified injury of head, initial encounter; K21.9 Gastro-esophageal reflux disease without esophagitis; G62.9 Polyneuropathy, unspecified; I34.0 Nonrheumatic mitral (valve) insufficiency; I49.5 Sick sinus syndrome; W18.30XA Fall on same level, unspecified, initial encounter; Y92.007 Garden or yard of unspecified non-institutional (private) residence as the place of occurrence of the external cause; Z98.84 Bariatric surgery status; Z95.0 Presence of cardiac pacemaker; Z87.891 Personal history of nicotine dependence; Z86.73 Personal history of transient ischemic attack (TIA), and cerebral infarction without residual deficits; Z79.01 Long term (current) use of anticoagulants; Z20.822 Contact with and (suspected) exposure to COVID-19
CPT/HCPCS: G0378; J3475; Q9967

== ENCOUNTER 2022-01-25 09:33 | Observation (INO) | payer MEDICARE, MEDICAID ==
[~2022-01-25] VITALS: Ht 157.5 cm; Wt 65.0 kg
[2022-01-25] VITALS (16 sets, daily range): BP systolic 112–140; BP diastolic 60–90
[~2022-01-25 09:33] MED LIST changes: +DILT-XR180 MG PO; +GABAPENTIN300 M2 PO; +HYDROCHLOROTH12.5 M1 PO; +LEVAQUIN750 M1 PO; +VOLTAREN1%GEL TOP
--- NOTE | 2022-01-25 09:50 | NUR ---
PT AMBULATORY TO ROOM FOR TRIAGE AT THIS TIME
[2022-01-25 10:23] LABS: IMMATURE GRANULOCYTES 0.1 % (0.0-5.0); MEAN CELL VOLUME 103.4 fL CALC (80.0-100.0); MEAN CORPUSCULAR HGB 32.1 pG CALC (26.0-32.0); MEAN CORPUSCULAR HGB CONC 31.1 g/dL CAL (32.0-36.0); NEUT# 6.01 thou/uL (2.00-7.15); RED BLOOD COUNT 4.67 mill/uL (4.20-5.60); RED CELL DISTRI WIDTH 12.7 % (11.5-15.5)
[2022-01-25 10:25] LABS: HEMATOCRIT 48.3 % (37.0-47.0)
[2022-01-25 10:42] LABS: BILIRUBIN, TOTAL 0.4 mg/dL (0.0-1.4); BUN 18 mg/dL (8-23); BUN/CREATININE RATIO 23 (12-20 (CALC)); CARBON DIOXIDE 26 mmol/l (22-30); CHLORIDE 101 mmol/l (95-108); CREATININE 0.8 mg/dL (0.5-1.0); GFR > 60 ML/MIN (>=60 (CALC)); GFR FOR AFR.AMER. > 60 ML/MIN (>=60 (CALC)); SODIUM 140 mmol/l (137-146)
[2022-01-25 10:46] LABS: ALBUMIN 5.1 g/dL (3.2-5.0); ALKALINE PHOSPHATASE 140 u/l (38-126); ANION GAP 17 (6-22 (CALC)); POTASSIUM 4.1 mmol/l (3.5-5.1); SGOT/AST 104 u/l (9-36); TOTAL PROTEIN 9.1 g/dL (6.3-8.2)
--- NOTE | 2022-01-25 12:00 | NUR ---
PATIENT IS AOX4. DENIES ANY CHEST PAIN OR SHORTNESS OF BREATH AT THIS TIME.
[2022-01-25] MEDS ORDERED: BACLOFEN10 MG PO (12:43)
[2022-01-25] MEDS ORDERED: HYDROCODONE BIT1 TA7 PO (12:44)
[2022-01-25] MEDS ORDERED: MEDDOSEPAK PO (12:45)
[2022-01-25] MEDS ORDERED: PROAIR HFA IN (12:47)
[2022-01-25] MEDS ORDERED: ALENDRONATE SOD70 MG PO (12:48)
[2022-01-25] MEDS ORDERED: FLOVENT HF220 MCG/AC IN (12:48)
--- NOTE | 2022-01-25 13:15 | NUR ---
REPORT CALLED TO [facility] AT THIS TIME
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
--- NOTE | 2022-01-25 20:30 | NUR ---
PT IN BED: A&O X3. EVEN AND UNLABORED RESPIRATIONS; CLEAR LUNG SOUNDS UPON AUSCULTATION. TELEMETRY IN PLACE. ACTIVE BOWEL SOUNDS X4 QUADRANTS. IV SITE HEALTHY AND PATENT. PT STATES: "IT'S TOO HOT IN HERE, IS THE AC WORKING?, MY SHEETS AND GOWN ARE WET FROM ALL THE SWEAT." CHANGED TEMPERATURE OF ROOM; NEW LINEN AND GOWN PROVIDED. AT THIS TIME ER CALLED ABOUT PT'S HR 130; HR WENT TO 86 WHEN PT BACK TO BED. PT C/O PAIN ON RIGHT SHOULDER; ADMINISTERED PAIN MEDICATION PER EMAR. SAFETY PRECAUTIONS IN PLACE WITH CALL LIGHT IN REACH.
--- NOTE | 2022-01-26 00:25 | NUR ---
PT SLEEPING. NO DISTRESS OR PAIN NOTED. TELEMETRY AND SAFETY PRECAUTIONS IN PLACE. CALL LIGHT IN REACH.
[2022-01-26 01:02] VITALS: BP 125/77
--- NOTE | 2022-01-26 02:30 | NUR ---
PT C/O PAIN ON RIGHT SHOULDER; ADMINISTERED PAIN MEDICATION PER EMAR. SAFETY PRECAUTIONS IN PLACE WITH CALL LIGHT IN REACH.
--- NOTE | 2022-01-26 04:25 | NUR ---
PT SLEEPING. NO DISTRESS OR PAIN NOTED. TELEMATRY AND SAFETY PRECAUTIONS IN PLACE. CALL LIGHT WITHIN REACH.
[2022-01-26 04:28] VITALS: BP 120/82
[2022-01-26 06:08] LABS: HEMOGLOBIN 14.1 g/dl (12.0-16.0); MEAN CORPUSCULAR HGB CONC 31.3 g/dL CAL (32.0-36.0); RED BLOOD COUNT 4.41 mill/uL (4.20-5.60); RED CELL DISTRI WIDTH 12.3 % (11.5-15.5)
[2022-01-26 06:16] LABS: ANION GAP 16 (6-22 (CALC)); BUN 22 mg/dL (8-23); BUN/CREATININE RATIO 33 (12-20 (CALC)); CARBON DIOXIDE 26 mmol/l (22-30); CHLORIDE 100 mmol/l (95-108); CREATININE 0.6 mg/dL (0.5-1.0); GFR > 60 ML/MIN (>=60 (CALC)); GFR FOR AFR.AMER. > 60 ML/MIN (>=60 (CALC)); MAGNESIUM 2.1 mg/dL (1.6-2.3); POTASSIUM 4.8 mmol/l (3.5-5.1); SODIUM 137 mmol/l (137-146)
[2022-01-26 07:48] VITALS: BP 137/80
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
[2022-01-26 10:46] VITALS: BP 116/76
[2022-01-26] MEDS ORDERED: HYDROCODONE BIT1 TA7 PO (12:23)
[2022-01-26] MEDS ORDERED: GEN TD (12:24)
--- NOTE | 2022-01-26 13:08 | NUR ---
Discharge instructions given. Patient verbalizes understanding of same. Discharged in stable condition via Wheelchair to Home with *Other. All belongings sent with pt.
== END 2022-01-26 13:06 | disposition home or self-care (01) ==
LOC: ED 09:33 → ED-I 11:50 → ED 12:01 → MS2 12:02
PROVIDERS: Family Medicine; ADMIT Hospitalist; ATTEND Hospitalist
DX: J45.901 Unspecified asthma with (acute) exacerbation (principal); S29.9XXA Unspecified injury of thorax, initial encounter; I10 Essential (primary) hypertension; I48.91 Unspecified atrial fibrillation; I49.5 Sick sinus syndrome; J44.9 Chronic obstructive pulmonary disease, unspecified; E78.5 Hyperlipidemia, unspecified; K21.9 Gastro-esophageal reflux disease without esophagitis; I34.0 Nonrheumatic mitral (valve) insufficiency; G62.9 Polyneuropathy, unspecified; W22.8XXA Striking against or struck by other objects, initial encounter; Y93.H2 Activity, gardening and landscaping; Y92.007 Garden or yard of unspecified non-institutional (private) residence as the place of occurrence of the external cause; Z87.891 Personal history of nicotine dependence; Z98.84 Bariatric surgery status; Z86.73 Personal history of transient ischemic attack (TIA), and cerebral infarction without residual deficits; Z95.0 Presence of cardiac pacemaker; Z79.01 Long term (current) use of anticoagulants; Z20.822 Contact with and (suspected) exposure to COVID-19

== ENCOUNTER 2022-02-06 14:55 | Emergency (ER) | payer MEDICARE, MEDICAID ==
[2022-02-06] VITALS (9 sets, daily range): BP systolic 115–137; BP diastolic 71–82
[~2022-02-06] VITALS: Ht 157.5 cm; Wt 67.0 kg
[~2022-02-06 14:55] MED LIST changes: +ALENDRONATE SOD70 MG PO; +BACLOFEN10 MG PO; +GEN TD; +HYDROCODONE BIT1 TA7 PO; +PROAIR HFA IN
[2022-02-06 15:26] LABS: HEMATOCRIT 43.2 % (37.0-47.0); HEMOGLOBIN 13.7 g/dl (12.0-16.0); IMMATURE GRANULOCYTES 0.3 % (0.0-5.0); MEAN CELL VOLUME 101.4 fL CALC (80.0-100.0); MEAN CORPUSCULAR HGB 32.2 pG CALC (26.0-32.0); MEAN CORPUSCULAR HGB CONC 31.7 g/dL CAL (32.0-36.0); NEUT# 8.09 thou/uL (2.00-7.15); RED BLOOD COUNT 4.26 mill/uL (4.20-5.60); RED CELL DISTRI WIDTH 12.3 % (11.5-15.5)
[2022-02-06 15:38] LABS: ALBUMIN 4.7 g/dL (3.2-5.0); ALKALINE PHOSPHATASE 127 u/l (38-126); ANION GAP 14 (6-22 (CALC)); BILIRUBIN, TOTAL 0.3 mg/dL (0.0-1.4); BUN 21 mg/dL (8-23); BUN/CREATININE RATIO 22 (12-20 (CALC)); CARBON DIOXIDE 23 mmol/l (22-30); CHLORIDE 103 mmol/l (95-108); CREATININE 0.9 mg/dL (0.5-1.0); GFR > 60 ML/MIN (>=60 (CALC)); GFR FOR AFR.AMER. > 60 ML/MIN (>=60 (CALC)); POTASSIUM 4.3 mmol/l (3.5-5.1); SGOT/AST 52 u/l (9-36); SODIUM 135 mmol/l (137-146); TOTAL PROTEIN 7.9 g/dL (6.3-8.2)
[2022-02-06 15:50] LABS: MYOGLOBIN 45 ng/mL (0 - 62)
[2022-02-06] MEDS ORDERED: LISINOPRIL5 MG PO (16:02)
[2022-02-06] MEDS ORDERED: DIFLUCAN150 MG PO (16:05)
[2022-02-06 16:52] LABS: AMYLASE 108 u/l (30-110); LIPASE 92 u/l (23-300)
[2022-02-06] MEDS ORDERED: ZITHROMAX250 MG PO (18:07)
[2022-02-06] MEDS ORDERED: NAPROXEN500 MG PO (18:08)
== END 2022-02-06 19:23 | disposition home or self-care (01) ==
LOC: ED 14:55
PROVIDERS: Emergency Medicine
DX: J18.9 Pneumonia, unspecified organism (principal); I71.2 Thoracic aortic aneurysm, without rupture; R74.8 Abnormal levels of other serum enzymes; I10 Essential (primary) hypertension; I48.91 Unspecified atrial fibrillation; J45.909 Unspecified asthma, uncomplicated; Z95.0 Presence of cardiac pacemaker; Z98.84 Bariatric surgery status; Z20.822 Contact with and (suspected) exposure to COVID-19
CPT/HCPCS: Q9967

== ENCOUNTER 2022-03-20 13:49 | Emergency (ER) | payer MEDICARE, MEDICAID ==
[~2022-03-20] VITALS: Ht 157.5 cm; Wt 68.1 kg
[~2022-03-20 13:49] MED LIST changes: +DIFLUCAN150 MG PO; +NAPROXEN500 MG PO; +ZITHROMAX250 MG PO
[2022-03-20 14:04] VITALS: BP 119/70
[2022-03-20 14:15] VITALS: BP 119/63
[2022-03-20 14:45] LABS: HEMATOCRIT 36.5 % (37.0-47.0); HEMOGLOBIN 11.3 g/dl (12.0-16.0); IMMATURE GRANULOCYTES 0.1 % (0.0-5.0); MEAN CELL VOLUME 106.1 fL CALC (80.0-100.0); MEAN CORPUSCULAR HGB 32.8 pG CALC (26.0-32.0); NEUT# 5.64 thou/uL (2.00-7.15); RED BLOOD COUNT 3.44 mill/uL (4.20-5.60); RED CELL DISTRI WIDTH 12.9 % (11.5-15.5)
[2022-03-20 14:59] LABS: ALBUMIN 4.2 g/dL (3.2-5.0); ALKALINE PHOSPHATASE 86 u/l (38-126); ANION GAP 12 (6-22 (CALC)); BILIRUBIN, TOTAL 0.1 mg/dL (0.0-1.4); BUN 19 mg/dL (8-23); BUN/CREATININE RATIO 19 (12-20 (CALC)); CARBON DIOXIDE 27 mmol/l (22-30); CHLORIDE 106 mmol/l (95-108); GFR FOR AFR.AMER. > 60 ML/MIN (>=60 (CALC)); GFR OTHER RACES 55 ML/MIN (>=60 (CALC)); POTASSIUM 4.3 mmol/l (3.5-5.1); SGOT/AST 34 u/l (9-36); SODIUM 141 mmol/l (137-146)
[2022-03-20 15:08] LABS: INTERNATIONAL NORMALIZED RATIO 1.1 RATIO (0.7-1.3); PROTHROMBIN TIME 11.4 SECONDS (9.0-12.5)
[2022-03-20 18:13] VITALS: BP 119/63
== END 2022-03-20 18:26 | disposition home or self-care (01) ==
LOC: ED 13:49
PROVIDERS: Family Medicine
DX: N93.9 Abnormal uterine and vaginal bleeding, unspecified (principal); I10 Essential (primary) hypertension; J45.909 Unspecified asthma, uncomplicated; I48.91 Unspecified atrial fibrillation; Z95.0 Presence of cardiac pacemaker; Z98.84 Bariatric surgery status
CPT/HCPCS: Q9967

== ENCOUNTER 2023-01-03 00:10 | Observation (INO) | payer MEDICARE, MEDICAID ==
[2023-01-03] VITALS (11 sets, daily range): BP systolic 110–142; BP diastolic 59–76
[~2023-01-03] VITALS: Ht 152.4 cm; Wt 62.7 kg
[2023-01-03] MEDS ORDERED: METOPROL TAR25 MG PO (00:40)
[2023-01-03] MEDS ORDERED: BREZTRI AEROSPH1 AER (00:40)
[2023-01-03] MEDS ORDERED: ACETAMIN500 M2 PO (00:42)
[2023-01-03 00:50] LABS: BASO% 0.3 % (0-3); EOS% 0.4 % (0-8); HEMATOCRIT 35.6 % (37.0-47.0); IMMATURE GRANULOCYTES 0.2 % (0.0-5.0); LYMPH% 14.8 % (15-41); MEAN CORPUSCULAR HGB 29.3 pG CALC (26.0-32.0); MEAN CORPUSCULAR HGB CONC 30.9 g/dL CAL (32.0-36.0); MONO% 8.7 % (2-13); NEUT# 10.45 thou/uL (2.00-7.15); NEUT% 75.6 % (42-76); RED BLOOD COUNT 3.76 mill/uL (4.20-5.60); RED CELL DISTRI WIDTH 15.2 % (11.5-15.5)
[2023-01-03 00:51] LABS: MEAN CELL VOLUME 94.7 fL CALC (80.0-100.0)
[2023-01-03 01:05] LABS: ALBUMIN 4.3 g/dL (3.2-5.0); ALKALINE PHOSPHATASE 91 u/l (38-126); BUN 9 mg/dL (8-23); BUN/CREATININE RATIO 14 (12-20 (CALC)); CARBON DIOXIDE 29 mmol/l (22-30); CHLORIDE 106 mmol/l (95-108); CREATININE 0.6 mg/dL (0.5-1.0); GFR FOR AFR.AMER. > 60 ML/MIN (>=60 (CALC)); GFR OTHER RACES > 60 ML/MIN (>=60 (CALC)); LIPASE 65 u/l (23-300); SGOT/AST 33 u/l (9-36); SODIUM 144 mmol/l (137-146); TOTAL PROTEIN 7.8 g/dL (6.3-8.2)
[2023-01-03 01:06] LABS: ANION GAP 12 (6-22 (CALC)); BILIRUBIN, TOTAL 0.6 mg/dL (0.02-1.3); POTASSIUM 2.8 mmol/l (3.5-5.1)
[2023-01-03 01:54] LABS: INTERNATIONAL NORMALIZED RATIO 1.3 RATIO (0.7-1.3); PROTHROMBIN TIME 12.5 SECONDS (9.0-12.5)
[2023-01-03 08:50] LABS: MAGNESIUM 1.7 mg/dL (1.6-2.3); POTASSIUM 2.9 mmol/l (3.5-5.1)
[2023-01-04 03:44] VITALS: BP 133/64
[2023-01-04 06:08] VITALS: BP 158/79
[2023-01-04 06:39] LABS: CHOLESTEROL HDL RATIO 2.9 (<4.4 (CALC)); MAGNESIUM 1.9 mg/dL (1.6-2.3)
[2023-01-04 09:39] VITALS: BP 141/79
[2023-01-04 14:31] VITALS: BP 122/61
[2023-01-04] MEDS ORDERED: ZPAK PO (14:51)
== END 2023-01-04 18:12 | disposition home health service (06) ==
LOC: ED 00:10 → ED-I 01:37 → ED 01:51 → MS2 01:52
PROVIDERS: Emergency Medicine; Internal Medicine; ADMIT Internal Medicine; ATTEND Internal Medicine
DX: R07.89 Other chest pain (principal); E87.6 Hypokalemia; R91.8 Other nonspecific abnormal finding of lung field; J44.9 Chronic obstructive pulmonary disease, unspecified; S00.93XA Contusion of unspecified part of head, initial encounter; S20.221A Contusion of right back wall of thorax, initial encounter; I10 Essential (primary) hypertension; I49.5 Sick sinus syndrome; I48.19 Other persistent atrial fibrillation; I34.0 Nonrheumatic mitral (valve) insufficiency; E78.5 Hyperlipidemia, unspecified; M19.90 Unspecified osteoarthritis, unspecified site; G62.9 Polyneuropathy, unspecified; W01.0XXA Fall on same level from slipping, tripping and stumbling without subsequent striking against object, initial encounter; Y93.89 Activity, other specified; Y92.009 Unspecified place in unspecified non-institutional (private) residence as the place of occurrence of the external cause; Z95.0 Presence of cardiac pacemaker; Z79.01 Long term (current) use of anticoagulants; Z98.84 Bariatric surgery status; Z82.49 Family history of ischemic heart disease and other diseases of the circulatory system; Z86.73 Personal history of transient ischemic attack (TIA), and cerebral infarction without residual deficits
CPT/HCPCS: Q9967